=== PATIENT | female | born 1970 | race Caucasian/White ===

== ENCOUNTER → 2023-12-01 12:43 | Day surgery (SDC) | payer OTHER, SELFPAY ==
[2023-12-01 13:15] VITALS: BP 154/95; PULSE 101; RESP 18; TEMP 36.7; O2SAT 96
--- NOTE | 2023-12-01 13:19 | P.CONAN_ITS ---
HPI - Anesthesia Eval Consult details Narrative: 53 yo female patient for EGD, Colonoscopy [facility] Active Problems Active Problems: GERD Hypercholesterolemia Increased BMI YOMI. Uses CPAP Hypokalemia- Last checked( [facility] labs)- result from patient 11/27/23 3.2 Past Medical History Medical History Hypercholesterolemia GERD (gastroesophageal reflux disease) Fluid retention Family History Family history of problems with anesthesia: No Surgical History Surgical History Hx laparoscopic cholecystectomy H/O breast surgery H/O hernia repair History of endoscopy H/O colonoscopy History of Problems with Anesthesia: Yes (Ponv with some surgeries ) Social History Social History Patient Tobacco Use Status: Never used Tobacco Are you DNR?: No Advance Directives: No Advance Directives Information Provided: Yes Nutrition Risks: No Nutritional Risk Meds Allergies Allergy/AdvReac Type Severity Reaction Status Date / Time adhesive tape [ADHESIVE TAPE] Allergy Severe SKIN Verified 12/01/23 13:16 EXCORIATION Iodinated Contrast Media Allergy Severe HIVES Verified 12/01/23 13:16 [IV CONTRAST] Active Medications: Current Medications Lactated Ringer's (Lr) 1,000 mls @ 80 mls/hr IVCONT .[id number] YOBANI Sodium Biphosphate/Sodium Phosphate (Sodium Phosphate,[place]-Dibasic 133 Ml Enema) 133 ml SD ONCE PRN PRN Reason: Poor Colonoscopy Prep Results Home Medications ?Medication ?Instructions ?Recorded ?Confirmed ?Last Taken ?Type omeprazole 1 cap PO DAILY 12/01/23 12/01/23 12/01/23 History rosuvastatin 1 tab PO DAILY 12/01/23 12/01/23 Unknown History triamterene-hydrochlorothiazid PO BID 12/01/23 Unknown History Exam Height,Weight and Vital Signs: Height 5 ft 1 in Weight 73.936 kg Last Vital Signs Temp 98.0 F 12/01/23 13:15 Pulse 101 H 12/01/23 13:15 Resp 18 12/01/23 13:15 BP 154/95 H 12/01/23 13:15 Pulse Ox 96 12/01/23 13:15 O2 Del Method Room Air 12/01/23 13:15 Airway Mallampati Class: III TM Dist: >3cm Neck ROM: Full Loose/Missing/Broken Teeth: No (Crowns top front intact. Denies broken, loose, missing teeth ) Heart: RRR Lungs: CTAB Assessment and Plan Assessment Anesthesia Assessment: Anesthesia Plan Discussed and Chart Reviewed Final Anesthetic Review Family History of Problems with Anesthesia: No History of Problems with Anesthesia: Yes (Ponv with some surgeries ) NPO: Yes ASA Class: III Final Preanesthetic Review: No Changes in Pt Med Stat, Meds/Allgs Chart Reviewed, Consent Obtained/Reviewed and Anes Risks/Benef Reviewed Patient Risk: Intermediate Procedure Risk: Low Assessment/Block/Sedation in SS: Assess/Block/Sedation-SS Anesthetic Plan Anesthetic Plan: MAC: and TIVA Disposition: Standard PACU
[2023-12-01 13:31] VITALS: BMI 30.8
[2023-12-01] MEDS: Lactated Ringers 1,000 ML 80 ML IVCONT (13:31)
[2023-12-01 14:31] VITALS: BP 115/65; PULSE 65; RESP 16; TEMP 36.1; O2SAT 94
--- NOTE | 2023-12-01 14:31 | PM.OP ---
Brief Operative Note Date of Service: 12/01/23 Pre-op diagnosis: GERD, Screening Post-op diagnosis: other (Hiatal hernia, Diverticulosis) Procedure: EGD with biopsies, Colonoscopy to the cecum Surgeon: Paulie Stark MD Anesthesia: MAC Was an Composition Roll Maker And Cutter used for this Procedure?: No Estimated blood loss (mL): 2.0 Pathology: other (A. Gastric antrum B. EG Junction at 33cm) Condition: stable Disposition: PACU
[2023-12-01 14:46] VITALS: BP 132/71; PULSE 63; RESP 14; TEMP 36.1; O2SAT 99
[2023-12-01 15:01] VITALS: BP 130/74; PULSE 65; RESP 15; TEMP 36.1; O2SAT 99
--- NOTE | 2023-12-01 23:14 | OP_ITS ---
DATE OF SERVICE: 12/01/2023 SURGEON: Paulie Stark MD INDICATIONS: The patient presents for evaluation of gastroesophageal reflux and colorectal cancer screening in regard to family history of colon cancer. Full consent has been obtained from her for both procedures, including risks of bleeding and perforation. PREOPERATIVE DIAGNOSIS: POSTOPERATIVE DIAGNOSIS: PROCEDURE PERFORMED: Esophagogastroduodenoscopy with biopsies and colonoscopy to cecum. ESTIMATED BLOOD LOSS: COMPLICATIONS: ANESTHESIA: Monitored anesthesia care. ASSISTANTS: SPECIMENS: PREOPERATIVE DIAGNOSES: Gastroesophageal reflux, family history of colon cancer, and colorectal cancer screening. POSTOPERATIVE DIAGNOSES: Gastroesophageal reflux, family history of colon cancer, colorectal cancer screening, hiatal hernia, rule out Gutiérrez's esophagus, rule out gastritis, diverticulosis, internal hemorrhoids. DESCRIPTION OF PROCEDURE: The patient was placed in the left lateral decubitus position. The Olympus video gastroscope was passed in the posterior oropharynx and upper esophagus under direct vision. The scope was passed slowly to the distal esophagus. The gastroesophageal junction appeared at 33 cm. There was some very minimal irregularity consistent with reflux but no evidence of esophagitis nor any definitive evidence of Gutiérrez's mucosa. There was a small hiatal hernia. The scope easily entered the stomach and was advanced to the pylorus. The duodenum was cannulated to the descending portion. The duodenum including the bulb appeared normal without mass or ulceration. The scope was withdrawn back to the stomach. The gastric antrum and body appeared normal with good peristalsis. Biopsies were obtained from the antrum. The scope was retroflexed visualizing the proximal stomach carefully which appeared normal and consistent with a previous fundoplication. There was no evidence of any mass or ulceration. The scope was straightened and withdrawn back to the esophagus. Biopsies were obtained at the EG junction at 33 cm. Proximal to that, the esophageal mucosa appeared normal without any sign of esophagitis. The scope was withdrawn from the patient and she was turned around for the colonoscopy. The digital rectal exam revealed no abnormalities. The Olympus video pediatric colonoscope was entered into the rectum and advanced easily to the cecum. Once in the cecum, I did identify normal-appearing cecal pouch with appendiceal orifice and a normal-appearing ileocecal valve. The entire cecum was well visualized and appeared normal. The scope was then slowly withdrawn assessing all mucosal surfaces carefully. Preparation was excellent. I did not visualize any sign of polyps, colitis, nor angiodysplasia. There was a mild amount of sigmoid diverticulosis. In the rectum, scope was retroflexed visualizing internal hemorrhoids, but no other pathology. The rectal mucosa appeared normal. The scope was straightened and withdrawn from the patient. She tolerated both procedures well and was returned to the recovery area in stable condition. IMPRESSION: 1. Small hiatal hernia, gastroesophageal reflux, rule out Gutiérrez's esophagus. 2. Status post fundoplication. 3. Rule out gastritis and/or H pylori, although gastric antrum appeared grossly normal. 4. Sigmoid diverticulosis. 5. Internal hemorrhoids. PLAN: The results of the biopsies will be checked. I would recommend a repeat colonoscopy in 5 years for further screening given her significant family history of colon cancer in her mother at an early age. In regard to the reflux, this has been more problematic for her lately since having tried to come off the omeprazole last month. I have recommended she use the omeprazole twice a day for at least 2 more weeks and then decrease to 1 a day long-term. She was advised that she could also use famotidine and/or antacids as needed. She was advised to advance her diet and eat normally. She was advised not to use any aspirin and NSAIDs for 1 week. I advised her that I would send over a prescription for her to use an antinausea medicine as needed as well. If things improve and remain stable, I would then plan to see her in 5 years for repeat colonoscopy. If she continues to have significant upper GI complaints, we could then consider further evaluation with a barium swallow, 24 hour pH study, and esophageal motility study. However, hopefully things will improve on the PPI and other symptomatic treatment. I did review this in detail with her , as well as with the patient after the procedure. MD PRIMO Cadena/SHANIA / [phone] VICKIE
== END | disposition home or self-care (01) ==
PROVIDERS: PCP Orthopaedic Surgery; Visit Provider Internal Medicine
PROC: (CPT 45378; principal; 2023-12-01 14:30)
DX: Z12.11 Encounter for screening for malignant neoplasm of colon (principal); Z80.0 Family history of malignant neoplasm of digestive organs; K57.30 Diverticulosis of large intestine without perforation or abscess without bleeding; K64.8 Other hemorrhoids; K21.9 Gastro-esophageal reflux disease without esophagitis; K44.9 Diaphragmatic hernia without obstruction or gangrene; E78.00 Pure hypercholesterolemia, unspecified; R60.9 Edema, unspecified; Z79.899 Other long term (current) drug therapy; Z90.49 Acquired absence of other specified parts of digestive tract; Z98.890 Other specified postprocedural states
CPT/HCPCS: 45378; 43239; 88305; 88313; 88342; J1596; J2405; J2704